=== PATIENT | male | born 1945 | race African-American/Black ===

== ENCOUNTER 2016-08-04 09:22 | Emergency (ER) | payer MEDICARE, MEDICAID ==
[~2016-08-04] VITALS: Ht 165.1 cm; Wt 70.0 kg
[~2016-08-04 09:22] MED LIST: ASPI325T PO; EPIP0.3I IM; GLYB1TAB51 PO; LISI-360 PO; SILV1CRE80 TOP
[2016-08-04 09:25] VITALS: BP 209/103; PULSE 85; RESP 14; TEMP 98.2; O2SAT 96
[2016-08-04] MEDS ORDERED: LORazepam 2 MG/ML VIAL IV PUSH ONE (10:00)
[2016-08-04] MEDS ORDERED: SODIUM CHLORIDE 0.9% FLUSH 5 ML FLUSH IVF PRN (10:00)
--- NOTE | 2016-08-04 10:01 | PD ---
HPI Chief Complaint: Numbness/Tingling Time Seen by Provider: 09:58 Travel History International Travel<30 days: No Contact w/Intl Traveler<30days: No Traveled to known affect area: No History of Present Illness HPI This is a 70-year-old male who presents the emergency department with 5 days of left thigh pain, constant, worse with walking, improved with rest, feeling like a vice is around his thigh, moderate severity. The patient reports he's not had pain like this before. He also is noticing some numbness and tingling in both of his feet. He does have a history of diabetes. He has a history of a stroke with weakness affecting his right side but he's recovered well from that. He's tried to take ibuprofen and that helped some but his pain is getting worse and is limiting his ability to walk so he came to the emergency department. PFSH Past Medical History Blood Disorders: No Anxiety: No Depression: No Cancer: No Cardiovascular Problems: Yes Diabetes: Yes Diminished Hearing: No Endocrine: No Glaucoma: No Genitourinary: No Hypertension: Yes Immune Disorder: No Musculoskeletal: No Neurologic: No Psychiatric: No Reproductive: No Respiratory: No Past Surgical History Other Surgery: Yes Social History Alcohol Use: No Tobacco Use: Yes (CHEWING TOBACCO) Substance Use: No Allergies-Medications (Allergen,Severity, Reaction): Coded Allergies: No Known Allergies (Verified , 01/24/13) Reported Meds & Prescriptions Reported Meds & Active Scripts Active Reported Metformin (Metformin HCl) 1,000 Mg Tab 1,000 Mg PO BIDPC With meals Januvia (Sitagliptin Phosphate) 100 Mg Tab 100 Mg PO DAILY Atorvastatin (Atorvastatin Calcium) 20 Mg Tab 20 Mg PO HS [Hctz] 25 Mg PO DAILY Lisinopril 20 Mg Tab 20 Mg PO DAILY Review of Systems Except as stated in HPI: all other systems reviewed are Neg Physical Exam Narrative GENERAL:Well appearing, no acute distress SKIN: Warm and dry. HEAD: Atraumatic. Normocephalic. EYES: Pupils equal and round. No injection or drainage. ENT: Moist mucous membranes NECK: Trachea midline. CARDIOVASCULAR: Regular rate and rhythm. No murmur appreciated. 2+ bilateral DP pulses with normal capillary refill. Both lower extremities are warm. . RESPIRATORY: Clear to auscultation. Breath sounds equal bilaterally. GASTROINTESTINAL: Abdomen soft, non-tender, nondistended. MUSCULOSKELETAL: No obvious deformities. Left lower extremity appears more swollen than the right NEUROLOGICAL: Awake and alert. No obvious cranial nerve deficits. 5 out of 5 strength in the bilateral lower extremities. Gait is antalgic. PSYCHIATRIC: Appropriate mood and affect; insight and judgment normal. Data Data Last Documented VS Vital Signs Date Time Temp Pulse Resp B/P Pulse Ox O2 Delivery O2 Flow Rate FiO2 08/04/16 13:20 60 18 199/73 100 08/04/16 10:08 Room Air 08/04/16 09:25 98.2 Orders Sodium Chloride 0.9% Flush (Ns Flush) (08/04/16 10:00) Lorazepam Inj (Ativan Inj) (08/04/16 10:00) Spine, Lumbar - Ltd (Ap & Lat) (08/04/16 ) Hip, Uni(Ap&Lat) W Ap Pelvis (08/04/16 ) Femur (Ap & Lat/2vws) (08/04/16 ) Us Leg Venous Doppler (08/04/16 ) Oxycodone-Acetamin 5-325 Mg (Percocet (08/04/16 10:15) Ct Pelvis W/O Iv Contrast (08/04/16 ) MDM Medical Decision Making Medical Screen Exam Complete: Yes Emergency Medical Condition: Yes Interpretation(s) Last 24 hours Impressions Lumbar Spine X-Ray 08/04/16 0000 Signed Impressions: Service Date/Time: Thursday, August 04, 2016 10:33 - CONCLUSION: 1. No acute lumbar spine abnormality is identified. However, there is degenerative disc disease at all levels but most severe at L5-S1. 2. Severe facet arthrosis at L4-L5 causing grade 1 anterolisthesis. Randy Helton MD Lower Extremity Ultrasound 08/04/16 0000 Signed Impressions: Service Date/Time: Thursday, August 04, 2016 11:45 - CONCLUSION: There is no left lower extremity DVT. Randy Helton MD Hip and Pelvis X-Ray 08/04/16 0000 Signed Impressions: Service Date/Time: Thursday, August 04, 2016 10:29 - CONCLUSION: No acute abnormality is identified. 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 Randy Helton MD ADDENDUM: COMPARISON: FEMUR LEFT (AP & LAT/2VWS), August 04, 2016, 10:29 After further review of the patient's left femur exam there is a questionable lucency in the left superior pubic ramus which could represent artifact versus a nondisplaced fracture. If the patient is experiencing pain in this region evidence CT for further evaluation. Randy Helton MD Femur X-Ray 08/04/16 0000 Signed Impressions: Service Date/Time: Thursday, August 04, 2016 10:29 - CONCLUSION: Questionable lucency is appreciated through the left superior pubic ramus. If the patient is experiencing pain in this region this could represent a nondisplaced fracture. CT could confirm, if needed. Randy Helton MD Differential Diagnosis Occult fracture, DVT, compression fracture, osteoarthritis, peripheral arterial disease Narrative Course This is a 70-year-old male who presents to the emergency department with left- sided thigh pain that's been worsening over the past week and difficult for him to walk. He has a normal neurologic vascular exam. I don't suspect any sort of acute arterial occlusion. His pain is in an unusual area in the mid thigh. An ultrasound was obtained which was negative for DVT. Plain films were suspicious for a pubic ramus fracture face CT pelvis was negative for fracture. I suspect the patient's pain may be related to a lumbar radiculopathy. He does have significant degenerative disc disease and low back. Patient will be treated with tramadol and gabapentin and can follow-up with a primary care physician as an outpatient. Diagnosis Primary Impression: Degenerative disc disease at L5-S1 level Patient Instructions: General Instructions Additional Instructions: If you develop weakness of her legs, difficulty walking, numbness of your legs or your genital or rectal area, loss of your bowel or bladder, or difficulty urinating return to the emergency department immediately. Followup with your primary care physician in one week if your symptoms have not improved. Med/Other Pt SpecificInfo: Prescription(s) given Scripts Gabapentin 300 Mg [id number] Mg PO TID #90 CAP Ref 0 Prov:Symone Arrieta MD 08/04/16 Tramadol 50 Mg Tab50 Mg PO Q6H PRN (PAIN) #15 TAB Ref 0 Prov:Symone Arrieta MD 08/04/16 Disposition: 01 DISCHARGE HOME Condition: Stable Symone Arrieta MD Aug 04, 2016 10:01
[2016-08-04] MEDS ORDERED: Hctz PO (10:15)
[2016-08-04] MEDS ORDERED: oxyCODONE/ACETAMINOPHEN 5 MG/325 MG TAB PO ONE (10:15)
[2016-08-04] MEDS ORDERED: SITA1TAB2 PO (10:15)
[2016-08-04] MEDS ORDERED: METF1000 PO (10:15)
[2016-08-04] MEDS ORDERED: ATOR20TA15 PO (10:15)
[2016-08-04] MEDS ORDERED: LISI-515 PO (10:15)
--- NOTE | 2016-08-04 10:58 | RADRPT ---
EXAM DATE/TIME: 08/04/2016 10:29 This report includes an Addendum and supersedes previous reports for this exam. [facility] COMPARISON: No previous studies available for comparison. INDICATIONS : Left hip pain for one week. No known trauma. MEDICAL HISTORY : None. SURGICAL HISTORY : None. ENCOUNTER: Initial ACUITY: 1 week PAIN SCORE: 8/10 LOCATION: Left hip. FINDINGS: AP view of the pelvis with 2 views of the left hip joint demonstrate a no fracture or dislocation. Mi neralization is within normal limits. Sacroiliac joints demonstrate no abnormality. There is mild ost eoarthritis at the hip joints bilaterally. No soft tissue abnormality is seen. CONCLUSION: No acute abnormality is identified. 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 Randy Helton MD on August 04, 2016 at 10:56 Board Certified Radiologist. This report was verified electronically. ADDENDUM: COMPARISON: FEMUR LEFT (AP & LAT/2VWS), August 04, 2016, 10:29 After further review of the patient's left femur exam there is a questionable lucency in the left sup erior pubic ramus which could represent artifact versus a nondisplaced fracture. If the patient is ex periencing pain in this region evidence CT for further evaluation. Randy Helton MD on August 04, 2016 at 10:59 Board Certified Radiologist. This report was verified electronically.
--- NOTE | 2016-08-04 11:07 | RADRPT ---
EXAM DATE/TIME: 08/04/2016 10:29 [facility] COMPARISON: HIP LEFT (AP&LAT 2/3VWS) W AP PELVIS, August 04, 2016, 10:29. INDICATIONS : Femur pain for one week. No known trauma. MEDICAL HISTORY : None. SURGICAL HISTORY : None. ENCOUNTER: Initial ACUITY: 1 week PAIN SCORE: 8/10 LOCATION: Left femur. FINDINGS: 4 views of the left femur demonstrate a questionable oblique lucency in the left superior pubic ramus . Femur appears intact. Mineralization is within normal limits. There is mild left hip joint osteoart hritis. No soft tissue abnormality is seen. There is arterial vascular calcification. CONCLUSION: Questionable lucency is appreciated through the left superior pubic ramus. If the patient is experien cing pain in this region this could represent a nondisplaced fracture. CT could confirm, if needed. Randy Helton MD on August 04, 2016 at 11:04 Board Certified Radiologist. This report was verified electronically.
--- NOTE | 2016-08-04 11:12 | RADRPT ---
EXAM DATE/TIME: 08/04/2016 10:33 [facility] COMPARISON: No previous studies available for comparison. INDICATIONS : Lower back pain for one week. No known trauma. MEDICAL HISTORY : None. SURGICAL HISTORY : None. ENCOUNTER: Initial ACUITY: 1 week PAIN SCORE: 8/10 LOCATION: lumbar spine. FINDINGS: 3 views of the lumbar spine demonstrate 5 nonrib-bearing lumbar vertebral bodies. No fracture or comp ression deformity is present. There are endplate osteophytes at multiple levels. Minimal anterolisthe sis of L4 on L5 is present measuring approximately 3 mm. There is decreased disc height at all lumbar levels but most severe at L5-S1 where there is endplate sclerosis. There is severe facet hypertrophy at L4-L5 and L5-S1. Visualized pelvic bones and surrounding structures demonstrate no acute finding. There is calcificati on of the aorta and iliac arteries. CONCLUSION: 1. No acute lumbar spine abnormality is identified. However, there is degenerative disc disease at al l levels but most severe at L5-S1. 2. Severe facet arthrosis at L4-L5 causing grade 1 anterolisthesis. Randy Helton MD on August 04, 2016 at 11:05 Board Certified Radiologist. This report was verified electronically.
--- NOTE | 2016-08-04 12:22 | RADRPT ---
EXAM DATE/TIME: 08/04/2016 11:45 [facility] COMPARISON: No previous studies available for comparison. INDICATIONS : Pain in left lower extremity. MEDICAL HISTORY : Hypertension. SURGICAL HISTORY : Right ankle surgery. ENCOUNTER: Initial ACUITY: 4 - 6 days PAIN SCORE: 0/10 LOCATION: Left leg. TECHNIQUE: Venous ultrasound of the leg was performed from the inguinal ligament to the proximal calf. Real-yuki e, color Doppler and spectral tracing, compression and augmentation techniques were used. FINDINGS: There is normal compressibility of the deep venous system from the inguinal region to the proximal ca lf. No echogenic clot is seen in the lumen of the common femoral, femoral, popliteal, and posterior tibial veins. There is a normal response of the venous system to proximal and distal augmentation an d respiration. CONCLUSION: There is no left lower extremity DVT. Randy Helton MD on August 04, 2016 at 12:19 Board Certified Radiologist. This report was verified electronically.
[2016-08-04 13:20] VITALS: BP 199/73; PULSE 60; RESP 18; O2SAT 100
--- NOTE | 2016-08-04 13:20 | RADRPT ---
EXAM DATE/TIME: 08/04/2016 12:46 [facility] COMPARISON: No previous studies available for comparison. INDICATIONS : Left pelvic pain. ORAL CONTRAST: No oral contrast ingested. RADIATION DOSE: 11.10 CTDIvol (mGy) MEDICAL HISTORY : Hypertension. Cardiovascular disease SURGICAL HISTORY : None. ENCOUNTER: Initial ACUITY: 1 day PAIN SCALE: 4/10 LOCATION: Left pelvis TECHNIQUE: Volumetric scanning of the pelvis was performed. Using automated exposure control and adjustment of the mA and/or kV according to patient size, radiation dose was kept as low as reasonably achievable t o obtain optimal diagnostic quality images. FINDINGS: BOWEL/MESENTERY: The visualized small and large bowel demonstrate no acute abnormality. There is no free fluid. BLADDER: There is no wall thickening or mass. RETROPERITONEUM: There is no aneurysm or lymphadenopathy. There is moderate atherosclerotic disease. REPRODUCTIVE: Prostate gland is enlarged. INGUINAL: There is no lymphadenopathy or hernia. MUSCULOSKELETAL: There are mild degenerative changes at the hip joints bilaterally. No fracture is visualized. There i s severe degenerative disc disease at L5-S1 with endplate sclerosis and decreased disc height. CONCLUSION: 1. No fracture is identified. The recent x-ray findings likely represented overlapping structures. 2. There is mild bilateral hip joint osteoarthritis and severe degenerative disc disease at L5-S1. 3. Moderate atherosclerotic disease. Randy Helton MD on August 04, 2016 at 13:13 Board Certified Radiologist. This report was verified electronically.
[2016-08-04] MEDS ORDERED: TRAM50TA PO (13:26)
[2016-08-04] MEDS ORDERED: GABA300C5 PO (13:26)
[2016-08-05] MEDS ORDERED: HYDR25TA5 PO (09:23)
== END 2016-08-04 13:34 | disposition home or self-care (01) ==
LOC: NEPE 09:22
DX: M51.37 Other intervertebral disc degeneration, lumbosacral region (principal); M16.0 Bilateral primary osteoarthritis of hip; I10 Essential (primary) hypertension; E11.9 Type 2 diabetes mellitus without complications; F17.220 Nicotine dependence, chewing tobacco, uncomplicated; Z79.84 Long term (current) use of oral hypoglycemic drugs
CPT/HCPCS: 72100; 72192; 73502; 73552; 93971